=== PATIENT | male | born 1970 | race Asian ===

== ENCOUNTER 2019-04-30 05:12 | Emergency (ER) | payer SELFPAY ==
[~2019-04-30] VITALS: Ht 167.6 cm; Wt 136.4 kg
[2019-04-30] MEDS ORDERED: METF-960 PO (05:30)
[2019-04-30 07:50] VITALS: BP 123/77
== END 2019-04-30 07:53 | disposition home or self-care (01) ==
LOC: EMS 05:12
DX: B34.9 Viral infection, unspecified (principal); E11.9 Type 2 diabetes mellitus without complications; Z20.828 Contact with and (suspected) exposure to other viral communicable diseases
CPT/HCPCS: 87635